=== PATIENT | male | born 1935 | race Caucasian/White ===

== ENCOUNTER → 2023-08-05 09:59 | Outpatient (REF) | payer MEDICARE, BC, SELFPAY ==
[2023-08-05 10:31] LABS: % Basophils 0.7 % (0-2); % Eosinophils 2.1 % (0-6); % Immature Granulocytes 0.3 % (0-0.5); % Monocytes 7.7 % (1.7-9.3); % Neutrophils 64.2 % (42.2-75.2); Absolute Basophils 0.1 10^3/uL (0-0.2); Absolute Eosinophils 0.2 10^3/uL (0-0.7); Absolute Lymphocytes 1.8 10^3/uL (1.2-3.4); Absolute Monocytes 0.5 10^3/uL (0.1-0.6); Absolute Neutrophils 4.5 10^3/uL (1.4-6.5); Hematocrit 41.4 % (39.0-52.0); Mean Corp Hgb Conc. 33.8 g/dL (33.0-37.0); Mean Corpuscular Hgb 29.5 pg (27.0-31.0); Mean Corpuscular Volume 87.2 fL (80.0-94.0); Mean Platelet Volume 10.7 fL (7.4-10.4); Nucleated Red Blood Cells % 0 % (-); Platelet Count 218 10^3/uL (130-400); Red Blood Cell Count 4.75 10^6/uL (4.70-6.10); Red Cell Dist. Width 14.6 % (11.5-14.5)
[2023-08-05 11:50] LABS: AST (SGOT) 27 U/L (17-59); Albumin 4.2 g/dl (3.5-5.0); Blood Urea Nitrogen 16 mg/dl (9-20); Calcium 9.2 mg/dl (8.4-10.2); Carbon Dioxide 26 mmol/L (22-30); Chloride 103 mmol/L (98-107); Glucose 116 mg/dl (70-99); HDL Cholesterol 40 mg/dl; LDL Cholesterol, Calculated 72 mg/dl; Potassium 4.6 mmol/L (3.5-5.1); Sodium 136 mmol/L (135-145); Total Cholesterol 131 mg/dl (50-199); Triglyceride 98 mg/dl (10-149); Very Low Density Lipoprotein 19 mg/dl (0-30)
[2023-08-05 11:52] LABS: eGFR > 60.00
== END ==
LOC: REG 09:59
PROVIDERS: ATTENDING PHYSICIAN Internal Medicine Cardiovascular Disease
DX: E78.3 Hyperchylomicronemia (principal); I10 Essential (primary) hypertension
CPT/HCPCS: 36415; 80061; 80069; 84450; 85025